=== PATIENT | male | born 1990 ===

== ENCOUNTER 2021-07-09 15:38 | Emergency (ER) | payer BC ==
[~2021-07-09] VITALS: Ht 170.2 cm; Wt 79.0 kg
[2021-07-09 15:57] VITALS: BP 162/78
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
== END 2021-07-09 18:30 | disposition home or self-care (01) ==
LOC: ER 15:38
DX: S02.401A Maxillary fracture, unspecified side, initial encounter for closed fracture (principal); S02.32XA Fracture of orbital floor, left side, initial encounter for closed fracture; X58.XXXA Exposure to other specified factors, initial encounter; Y93.89 Activity, other specified; Y92.89 Other specified places as the place of occurrence of the external cause; Y99.8 Other external cause status
CPT/HCPCS: 70450; 70486; 99284